=== PATIENT | male | born 1990 | race Two or more races ===

== ENCOUNTER 2020-02-18 21:47 | Emergency (ER) | payer OTHER ==
[~2020-02-18] VITALS: Ht 170.2 cm; Wt 63.5 kg
== END 2020-02-19 12:49 | disposition home or self-care (01) ==
LOC: ER 21:47 → CPU-OBS 22:34 → ER 02-19 12:49
DX: I48.0 Paroxysmal atrial fibrillation (principal); F41.8 Other specified anxiety disorders
CPT/HCPCS: G0378; G0379; 93005 ×2; 93306